=== PATIENT | male | born 1955 | race Caucasian/White ===

== ENCOUNTER → 2017-01-08 13:30 | Outpatient (CLI) | payer BC ==
[2016-09-10 09:47] VITALS: BMI 29.3
[~2017-01-08 13:30] MED LIST: ASPIRIN325 MG PO; DILAUDID2 MG PO; LIPITOR10 MG PO; NORCO 10/325 TA1 TA1 PO; ZESTRIL20 MG PO; ZYLOPRIM300 MG PO
== END | disposition home or self-care (01) ==
LOC: D.CT 13:30
DX: R10.9 Unspecified abdominal pain (principal)

== ENCOUNTER 2018-02-26 05:35 | Day surgery (SDC) | payer BC ==
[2018-02-25 10:47] LABS: HEMATOCRIT 48.8 % (42.0-54.0); HEMOGLOBIN 16.9 g/dL (13.5-17.5); MCH 31.2 pg (26.0-34.0); MCHC 34.6 g/dL (31.0-37.0); MEAN PLATELET VOLUME 10.4 fL (7.4-10.4); RBC 5.42 10x6/uL (4.20-6.10); RDW 14.5 % (11.5-14.5); WBC 8.2 10x3/uL (4.8-10.8)
[~2018-02-26] VITALS: Ht 180.3 cm; Wt 101.6 kg
--- NOTE | ~2018-02-26 | OP ---
PATIENT NAME: NATASHA JACOBSON MEDICAL RECORD: [id number] :51 LOCATION:[facility] ADMISSION DATE: SURGEON: EDIL CHOUDHURY MD DATE OF OPERATION: 02/26/2018 SURGEON: Edil Choudhury MD ANESTHESIA: MAC by Dr. Edil Cisneros. PREOPERATIVE DIAGNOSIS: Elevated PSA 3.3. PROCEDURE: Transrectal ultrasound and prostate biopsy. SPECIMENS: From prostate biopsy. FINDINGS: A 39 gram prostate with no hypoechoic areas. ESTIMATED BLOOD LOSS: None. CLINICAL HISTORY: This is a 62-year-old male, who is taking testosterone supplementation. [facility]. Last year, his PSA was 1.7 and this year, it mandy to 3.3. He has a history of prostate cancer in an uncle. He comes today to have his prostate biopsy to check for the presence of prostate cancer. He is not allergic to any medications. 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 DESCRIPTION OF PROCEDURE: The patient was given IV sedation. He was then placed into dorsal lithotomy position. He has large external hemorrhoids visible. The transrectal ultrasound probe was placed and prostate size measurements were obtained. We obtained prostate size of 39 grams. Sextant biopsies were then obtained with at least 3 cores from each sextant. Once all the specimens were obtained, the procedure was terminated. The patient was brought back to the preoperative holding area. He is flying out to [place] tomorrow. I will see him upon his return to review his pathology results with him. TRANSINT:[id number] Voice Confirmation ID: [id number] DOCUMENT ID: [id number] EDIL CHOUDHURY MD at 0903 CC: [id number] DICTATION DATE: 02/26/18 0851 [employer] [facility] DIRECTOR: 02/26/18 1154 [facility] 02/26/18 [address] [place] [address]
[~2018-02-26 05:35] MED LIST changes: +ASPIRIN EC81 M1 PO
[2018-02-26 06:36] VITALS: BP 136/82; Ht 180.3 cm; Wt 101.6 kg
== END 2018-02-26 10:35 | disposition home or self-care (01) ==
LOC: D.OPS 05:35
PROVIDERS: Anesthesiology
DX: R97.20 Elevated prostate specific antigen [PSA] (principal); Z01.812 Encounter for preprocedural laboratory examination

== ENCOUNTER → 2018-05-12 14:34 | Outpatient (CLI) | payer BC ==
[2018-02-26 06:36] VITALS: BMI 31.3
== END | disposition home or self-care (01) ==
LOC: D.MRI 14:34
DX: M48.062 Spinal stenosis, lumbar region with neurogenic claudication (principal)

== ENCOUNTER → 2018-08-14 17:45 | Outpatient (CLI) | payer BC ==
[2018-02-26 06:36] VITALS: BMI 31.3
[2018-08-14 18:41] LABS: ANION GAP 15.6 mmol/L (8-16); CALCIUM 9.1 mg/dL (8.5-10.1); CARBON DIOXIDE 25.3 mmol/L (21.0-32.0); CREATININE - SERUM 1.3 mg/dL (0.6-1.3); POTASSIUM - SERUM 4.9 mmol/L (3.5-5.1)
== END | disposition home or self-care (01) ==
LOC: D.LABREF 17:45
PROVIDERS: Nurse Practitioner
DX: I10 Essential (primary) hypertension (principal)

== ENCOUNTER → 2018-08-20 11:48 | Outpatient (CLI) | payer BC ==
[2018-02-26 06:36] VITALS: BMI 31.3
== END | disposition home or self-care (01) ==
LOC: D.HCCARDIO 11:48
DX: I25.10 Atherosclerotic heart disease of native coronary artery without angina pectoris (principal); I10 Essential (primary) hypertension

== ENCOUNTER 2018-09-04 06:00 | Outpatient (CLI) | payer BC, MEDICARE ==
[~2018-09-04] VITALS: Ht 180.3 cm; Wt 102.3 kg
--- NOTE | ~2018-09-04 | HEMODYNAMI ---
PATIENT:NATASHA JACOBSON MEDICAL RECORD: [id number] : 51 LOCATION:D[facility] ADMISSION DATE: 09/04/18 Generatedon:09/04/20188:34 Patient name: NATASHA JACOBSON Patient #: [id number] SSN: : 1955 Date of study: 09/04/2018 Page: Of Hemodynamic Procedure Report Patient Data Patient Demographics Procedure consent was obtained First Name: NATASHA Gender: Male Last Name: INDIRA : 1955 [facility] Initial: VALENTINO Age: 63 year(s) Patient #: [id number] Race: Unknown Additional ID: [id number] Contact details [address]: [address] [place] [address] [address]IVE State: [place] City: [place] Zip code: [address] Past Medical History Allergies: No known allergies Admission Admission Data Admission Date: 09/04/2018 Admission Time: 6:00 Admit Source: Other Lab Results Lab Result Date: 09/04/2018 Lab Result Time: 6:30 Biochemistry Name Units Result Min Max BUN mg/dl 16 --(---*)-- 7 18 Creatinine mg/dl 1.4 --(----)*- 0.6 1.3 CBC Name Units Result Min Max Hematocrit % 46.7 --(-*--)-- 42 54 Hemoglobin g/dl 16.4 --(--*-)-- 13.5 17.5 Procedure Procedure Types Cath Procedure Diagnostic Procedure LHC LHC w/Coronaries Sedation Charges Moderate Sedation up to 30 minutes Procedure Description Procedure Date Procedure Date: 09/04/2018 Procedure Start Time: 8:08 Procedure End Time: 8:33 Procedure Staff Name Function Justin Mckeon MD Performing Physician Parveen Galindo RT Monitor Kourtney Sykes RT Scrub Radha Perez RN Nurse Deborah Santos RN Section Chief Procedure Data Cath Procedure Fluoroscopy Diagnostic fluoroscopy Total fluoroscopy Time: 4.8 time: 4.8 min min Diagnostic fluoroscopy Total fluoroscopy dose: 803 dose: 803 mGy mGy Contrast Material Contrast Material Type Amount (ml) Isovue 300 71 Entry Location Entry Primary Successful Side Size Upsize Upsize Entry Closure Musa ccessful Closure Location (Fr) 1 (Fr) 2 (Fr) Remarks Device Remarks Femoral Right 6 Fr Mechanical vein Short Compression Femoral Right 5 Fr Exoseal artery Estimated blood loss: 5 ml Diagnostic catheters Device Type Used For End Catheter Placement DIAGNOSTIC Dallin 110cm Procedure 5Fr catheter ([id number]) DIAGNOSTIC Reading 110cm 5 Procedure Fr catheter ([id number]) MULTIPACK JL 4.0 5Fr Procedure catheter MULTIPACK 3DRC 5Fr Procedure catheter Procedure Complications No complications Procedure Medications Medication Administration Route Dosage 0.9% NaCl I.V. 100 ml/hr Oxygen etCO2 Nasal cannula 2 l/min Lidocaine 2% added to field 20 Heparin Flush Bag added to field 2 bags (1000units/500ml NS) Radial Cocktail added to field 1 syringe (Verapomil 2mg/Nitro 400mcg/Heparin 1500units) Versed I.V. 2 mg Fentanyl I.V. 50 mcg Versed I.V. 1 mg Fentanyl I.V. 25 mcg Versed I.V. 1 mg Fentanyl I.V. 25 mcg Versed I.V. 1 mg Hemodynamics Rest HGB: 16.4 (g/dl) Heart Rate: 68 (bpm) Pressure Samples Time Site Value (mmHg) Purpose Heart Use Rate(bpm) 8:12 LV 78/-6,4 Snapshot 76 8:12 AO 67/45(51) Pullback 73 8:12 LV 81/0,7 Pullback 73 Gradients Valve Time Site 1 Site 2 Mean SEP/DFP Peak To Heart Use (mmHg) (sec/min) Peak Rate (mmHg) (bpm) Aortic 8:12 LV AO 6 16 14 73 81/0,7 67/45(51) Calculations Valve P-P Mean Valve Index Valve Source Name Gradient Area Flow (cm2) Aortic 14 6 14 6 Snapshots Pre Cath Intra NCS Post Cath Vital Signs Time Heart Resp SPO2 etCO2 NIBP (mmHg) Rhythm Pain Sedation Rate (ipm) (%) (mmHg) Status Level (bpm) 7:45:11 70 17 100 36 129/89(105) NSR 0 (11) 10(A) , No pain 7:49:31 60 19 99 35.6 126/82(96) NSR 0 (11) 10(A) , No pain 7:53:45 62 15 97 38.5 113/83(95) NSR 0 (11) 10(A) , No pain 7:57:59 66 14 97 32.6 107/75(84) NSR 0 (11) 10(A) , No pain 8:02:11 68 12 96 23.7 103/68(83) NSR 0 (11) 10(A) , No pain 8:06:23 68 12 96 33.3 99/65(78) NSR 0 (11) 10(A) , No pain 8:10:37 69 12 97 33.4 97/58(78) NSR 0 (11) 10(A) , No pain 8:14:49 72 10 96 32.6 82/51(70) NSR 0 (11) 9(A) , No pain 8:18:57 69 11 97 32.6 84/56(64) NSR 0 (11) 10(A) , No pain 8:23:07 67 11 96 31.9 82/51(65) NSR 0 (11) 9(A) , No pain 8:27:17 72 12 97 32.6 84/49(67) NSR 0 (11) 9(A) , No pain 8:31:27 72 11 97 30.4 87/49(68) NSR 0 (11) 10(A) , No pain Medications Time Medication Route Dose Verified Delivered Reason Notes Ef fectiveness by by 7:44:39 0.9% NaCl I.V. 100 Justin Deborah used for ml/hr Mike Santos substation superintendent 7:44:47 Oxygen etCO2 2 l/min Justin Deborah used for Nasal Mike Santos procedure cannula RN 7:44:53 Lidocaine 2% added 20ml Justin Justin for local to vial Mike Mckeon MD anesthetic field 7:45:00 Heparin Flush added 2 bags Justin Justin used for Bag to Mike Mckeon MD procedure (1000units/500ml field NS) 7:45:08 Radial Cocktail added 1 Justin Justin used for (Verapomil to syringe Mike Mckeon MD procedure 2mg/Nitro field 400mcg/Heparin 1500units) 7:57:53 Versed I.V. 2 mg Justin Deborah for Mike Santos sedation RN 7:57:58 Fentanyl I.V. 50 mcg Justin Deborah for Mike Santos sedation RN 8:03:58 Versed I.V. 1 mg Justin Deborah for Mike Santos sedation RN 8:04:02 Fentanyl I.V. 25 mcg Justin Deborah for Mike Santos sedation RN 8:10:59 Versed I.V. 1 mg Justin Deborah for Mike Santos sedation RN 8:11:04 Fentanyl I.V. 25 mcg Justin Deborah for Mike Santos sedation RN 8:22:18 Versed I.V. 1 mg Justin Deborah for Mike Santos sedation recreation assistant Log Time Note 7:31:41 Informed consent obtained and on chart 7:31:45 Admit Source: Other 7:32:09 Diagnostic Cath status Elective 7:32:11 Radha Perez RN sent for patient. Start room use. 7:32:11 Time tracking: Regular hours (M-F 7:00 - 5:00) 7:32:15 Plan of Care:Hemodynamics will remain stable., Cardiac rhythm will remain stable., Comfort level will be maintained., Respiratory function will remain adequate., Patient/ family verbilizes understanding of procedure., Procedure tolerated without complication., Recovers from procedure without complications.. 7:32:45 H&P Date Dictated: 09/04/2018 New H&P dictated by physician.. 7:32:57 Pre-procedure instructions explained to patient. 7:32:58 Pre-op teaching completed and patient verbalized understanding. 7:32:58 Family in waiting room. 7:37:26 Lab Result : BUN 16 mg/dl 7:37:26 Lab Result : Hemoglobin 16.4 g/dl 7:37:26 Lab Result : Creatinine 1.4 mg/dl 7:37:26 Lab Result : Hematocrit 46.7 % 7:37:29 Lab results completed and on chart. 7:38:07 Patient received from Pre/Post Procedure Room to CCL 1 Alert and oriented. Tansferred to table in Supine position. 7:38:09 Warm blankets applied, and bernabe hugger turned on for patient comfort. 7:38:09 Correct patient and procedure confirmed by team. 7:38:12 ECG and BP/O2 sat monitors applied to patient. 7:38:16 Patient NPO since Midnight. 7:38:22 Patient allergic to No known allergies 7:44:05 Vital chart was started 7:44:28 Is patient on blood thinner?No 7:44:30 Patient diabetic? No. 7:44:32 Previous problem with sedation/anesthesia? No ? 7:44:34 Snore? Yes 7:44:35 Sleep apnea? No 7:44:36 Deviated septum? No 7:44:37 Opens mouth fully? Yes 7:44:37 Sticks out tongue? Yes 7:44:39 0.9% NaCl 100 ml/hr I.V. was administered by Deborah Santos RN; used for procedure; 7:44:41 Airway obstruction? No ? 7:44:43 Dentures? No ? 7:44:46 Modified Sohan's test Ulnar < 7 seconds 7:44:47 Oxygen 2 l/min etCO2 Nasal cannula was administered by Deborah Santos RN; used for procedure; 7:44:49 Patient pain scale 0/10 ?. 7:44:53 Lidocaine 2% 20ml vial added to field was administered by Justin Mckeon MD; for local anesthetic; 7:45:00 Heparin Flush Bag (1000units/500ml NS) 2 bags added to field was administered by Justin Mckeon MD; used for procedure; 7:45:00 IV patent on arrival in left forearm with 0.9% NaCl at [facility]. 7:45:05 Right groin area was prepped with chlora-prep and draped in sterile fashion 7:45:05 Alarms reviewed by R. N. 7:45:06 Alarms reviewed by R. N. 7:45:06 Sharps counted by scrub and verified by R.N. 7:45:08 Radial Cocktail (Verapomil 2mg/Nitro 400mcg/Heparin 1500units) 1 syringe added to field was administered by Justin Mckeon MD; used for procedure; 7:45:09 Use device set Radial Dx or PCI 7:45:10 ACIST Syringe (84636) opened to sterile field. 7:45:11 Bag Decanter (2002) opened to sterile field. 7:45:12 ACIST Hand Control (76301) opened to sterile field. 7:45:12 ACIST Manifold (37705) opened to sterile field. 7:45:13 Tegaderm 4 x 4 (1626W) opened to sterile field. 7:45:20 Medline Cath Pack ([id number]) opened to sterile field. 7:45:20 DIAGNOSTIC WIRE .035 260cm J wire (880897) opened to sterile field. 7:45:21 MBrace Wrist Support ([id number]) opened to sterile field. 7:45:22 SHEATH 6FR Slender (33-5222) opened to sterile field. 7:45:23 NEEDLE Cook 21G 4cm Radial (Y60832) opened to sterile field. 7:54:18 Baseline sample Acquired. 7:54:21 Rhythm: sinus rhythm 7:54:22 Full Disclosure recording started 7:57:12 Physician arrived 7:57:13 --------ALL STOP TIME OUT------ 7:57:13 Final Timeout: patient, procedure, and site verified with staff and physician. All members of the team are in agreement. 7:57:16 Right Radial & Right Groin site verified by team. 7:57:18 Physical assessment completed. ASA score P 2 - A patient with mild systemic disease as per Justin Mckeon MD. 7:57:21 Sedation plan: IV Moderate Sedation Medication:Versed, Fentanyl 7:57:26 Zero performed for pressure channel P1 7:57:53 Versed 2 mg I.V. was administered by Deborah Santos RN; for sedation; 7:57:58 Fentanyl 50 mcg I.V. was administered by Deborah Santos RN; for sedation; 8:01:22 Zero performed for pressure channel P1 8:03:58 Versed 1 mg I.V. was administered by Deborah Santos RN; for sedation; 8:04:02 Fentanyl 25 mcg I.V. was administered by Deborah Santos RN; for sedation; 8:08:20 Procedure started. 8:08:25 Local anesthetic to right radial artery with Lidocaine 2% by Justin Mckeon MD.INITIAL ACCESS ONLY 8:09:00 A 6 Fr Short sheath was inserted into the Right Femoral vein 8:10:12 A DIAGNOSTIC Dallin 110cm 5Fr catheter (542179) was advanced over the wire and used for Procedure. 8:10:59 Versed 1 mg I.V. was administered by Deborah Santos RN; for sedation; 8:11:04 Fentanyl 25 mcg I.V. was administered by Deborah Santos RN; for sedation; 8:12:23 LV gram done using GARCIA 8::26 Injector settings: Ml/sec: 5, Volume: 15, 8:12:27 LV hemodynamics recorded. 8:12:39 EF : 60 % 8:14:03 Catheter exchanged over wire. 8:14:11 A DIAGNOSTIC Reading 110cm 5 Fr catheter (673731) was advanced over the wire and used for Procedure. 8:16:25 Catheter removed. 8:16:42 SHEATH 5FR Chelsea (OHQ570) opened to sterile field. 8:16:45 Use device set Multipack Set 8:16:47 DIAGNOSTIC Multipack 5Fr catheter set ([id number]) opened to sterile field. 8:16:58 Local anesthetic to right femoral artery with Lidocaine 2% by Justin Mckeon MD.ADDITIONAL ACCESS 8:22:12 A 5 Fr sheath was inserted into the Right Femoral artery 8:22:18 Versed 1 mg I.V. was administered by Deborah Santos RN; for sedation; 8:22:22 A MULTIPACK JL 4.0 5Fr catheter was advanced over the wire and used for Procedure. 8:23:14 LCA angiography performed. 8:24:51 Catheter exchanged over wire. 8:25:13 A MULTIPACK 3DRC 5Fr catheter was advanced over the wire and used for Procedure. 8:26:03 RCA angiography performed. 8:28:38 Catheter removed. 8:28:49 Contrast amount:Isovue 300 71ml. 8:29:09 EXOSEAL 5Fr (EX500) opened to sterile field. 8:29:11 TR BAND Standard ([id number]) opened to sterile field. 8:30:01 Sheath removed intact; hemostasis achieved with Exoseal to the Right Femoral artery. 8:30:07 Sheath removed intact; hemostasis achieved with Mechanical Compression to the Right Femoral vein. 8:30:09 Procedure ended.(Physican Out) 8:30:47 Fluoroscopy time 04.80 minutes. 8:30:56 Flurop Dose total: 803 8:30:56 Fluoroscopy dose: 803 mGy 8:31:01 Sharps counted by scrub and verified by R.N. 8:31:07 TR band inflated with 10cc of air. 8:31:08 Insertion/operative site no bleeding no hematoma. 8:31:12 Post-op/insertion site Right Femoral artery dressed using a 4 x 4 and Tegaderm. 8:31:15 Post right femoral artery:stable, soft, clean and dry 8:31:19 Post right radial artery:stable, soft, clean and dry 8:31:21 Post Procedure Pulses reassessed and unchanged 8:31:22 Post-procedure physical assessment completed. ASA score P 2 - A patient with mild systemic disease as per Justin Mckeon MD. 8:31:24 Post procedure rhythm: unchanged. 8:31:27 Estimated blood loss: 5 ml 8:31:28 Post procedure instruction explained to patient.Patient verbalizes understanding. 8:31:29 Patient needs reinforcement of post procedure teaching. 8:32:31 Procedure type changed to Cath procedure, Diagnostic procedure, LHC, LHC w/Coronaries, Sedation Charges, Moderate Sedation up to 30 minutes 8:32:55 Procedure and supply charges have been captured, reviewed, submitted and are correct. 8:32:57 Procedure Complication : No complications 8:32:59 Vital chart was stopped 8:33:00 See physician's report for complete and final results. 8:33:01 Report given to Pre/Post Procedure Room. 8:33:03 Patient transfered to Pre/Post Procedure Room with Stretcher. 8:33:05 Procedure ended. 8:33:05 Full Disclosure recording stopped 8:33:09 End room use (Document Last) Device Usage Item Name Manufacture Quantity Catalog Hospital Part Current Minimal Lot# / Number Charge Number Stock Stock Serial# Code ACIST Acist 1 79873 141264 395999 761872 20 Syringe Medical (88035) Systems Inc Bag Microtek 1 126162 24333 177098 5 Decanter Medical Inc. () ACIST Hand Acist 1 18239 558923 325872 505596 5 Control Medical (63940) Systems Inc ACIST Acist 1 34069 718971 340585 014780 5 Manifold Medical (59073) Systems Inc Tegaderm 4 3M 1 1626W 692346 497546 683003 5 x 4 (1626W) Medline Medline 1 [id number] 014559 72309 826525 5 Cath Pack ([id number]) DIAGNOSTIC [facility] Jaspal 1 703969 138255 878478 872520 30 WIRE .035 260cm J wire (976183) MBrace Advanced 1 140-0250-00 638671 55998 655446 5 Wrist Vascular Support Dynamics ([id number]) SHEATH 6FR Terumo 1 [id number] 541699 024789 480017 5 Slender (80-1060) NEEDLE [facility] 1 P25766 409480 606531 293010 5 21G 4cm Radial (C70523) DIAGNOSTIC Terumo 1 40-5023 476056 959006 711749 5 Dallin 110cm 5Fr catheter (557227) DIAGNOSTIC Terumo 1 40-5013 574640 699643 166151 5 Reading 110cm 5 Fr catheter (634324) SHEATH 5FR Terumo 1 UMG179 533352 753383 225952 5 Chelsea (NRR257) DIAGNOSTIC Cardinal 1 US2885 342108 59366 949010 30 Multipack Health 5Fr catheter set (VL1562) MULTIPACK Cardinal 1 601158 5 JL 4.0 5Fr Health catheter MULTIPACK Cardinal 1 512925 5 3DRC 5Fr Health catheter EXOSEAL 5Fr Cardinal 1 EX500 989630 764010 794378 10 (EX500) Health TR BAND Terumo 1 [id number] 210306 855068 692612 40 Standard (DUY93BUR) Signature Audit [place] Time Signature Unsigned Intra-Procedure 09/04/2018 Parveen Galindo 8:34:12 AM RT(R) Signatures Monitor : Parveen Galindo RT Signature : Date : Time : [facility] [address], [place] [address]
[2018-09-04] MEDS ORDERED: ZYLOPRIM300 MG PO (06:26)
[2018-09-04] MEDS ORDERED: LIPITOR20 MG PO (06:27)
[2018-09-04] MEDS ORDERED: LISINOPRIL10 MG PO (06:27)
[2018-09-04] MEDS ORDERED: NAPROSYN500 MG PO (06:27)
[2018-09-04] MEDS ORDERED: PRINIVIL20 MG PO (06:30)
[2018-09-04] MEDS ORDERED: EDARBI40 MG PO (06:30)
[2018-09-04 06:38] VITALS: BP 130/77; Ht 180.3 cm; Wt 102.3 kg
[2018-09-04 06:48] LABS: BASOPHILS 0.3 % (0-2); EOSINOPHILS 2.8 % (0-7); HEMATOCRIT 46.7 % (42.0-54.0); HEMOGLOBIN 16.4 g/dL (13.5-17.5); IMMATURE GRANULOCYTES 0.9 % (0-5); LYMPHOCYTES 19.9 % (15-50); MCH 32.7 pg (26.0-34.0); MCHC 35.1 g/dL (31.0-37.0); MCV 93.2 fL (80.0-100.0); MEAN PLATELET VOLUME 10.4 fL (7.4-10.4); MONOCYTES 11.1 % (2-11); PLATELET COUNT 169 10x3/uL (130-400); RBC 5.01 10x6/uL (4.20-6.10); RDW 15.8 % (11.5-14.5); WBC 7.7 10x3/uL (4.8-10.8)
[2018-09-04 07:07] LABS: ANION GAP 16.9 mmol/L (8-16); CALCIUM 8.9 mg/dL (8.5-10.1); CARBON DIOXIDE 22.5 mmol/L (21.0-32.0); CREATININE - SERUM 1.4 mg/dL (0.6-1.3); POTASSIUM - SERUM 4.4 mmol/L (3.5-5.1)
--- NOTE | 2018-09-04 08:55 | NUR ---
PT SLEEPING, RESP WTIH EASE ON O2 AT 2LPM VIA NC, HOB IS FLAT. NO BLEEDING AT CATH SITES TO RIGHT WRIST AND RIGHT GROIN, FINGERS AND FEET WARM, PULSES PALPABLE. MULTIPLE FAMILY AT BEDSIDE. CALL LIGHT IN REACH.
--- NOTE | 2018-09-04 09:11 | NUR ---
TR BAND IS CDI TO RIGHT WRIST, FIGNERS WARM AND CAP REFILL IS BRISK. PT IS SLEEPING, AWAKENS TO VERBAL STIMULI, REMAINS VERY DROWSY DENIES ANY C/O. PEDAL PULSES PALPABLE. HOB IS FLAT, RESP WITH EASE ON O2 AT 2LPM VIA NC. MULTIPLE FAMILY AT BEDSIDE. CALL LIGHT IN REACH.
--- NOTE | 2018-09-04 09:34 | NUR ---
2 CC OF AIR WEANED FROM TR BAND WITH NO BLEEDING NOTED. FINGERS WARM AND CAP IS BRISK. 5 FR EXOSEAL DRESSING TO RIGHT GROIN, AREA IS SOFT AND NONTENDER. PEDAL PULSES PALPABLE. HOB IS FLAT. NSR, DENIES ANY C/O CHEST PAIN.
--- NOTE | 2018-09-04 09:45 | NUR ---
3 CC OF AIR WEANED FROM TR BAND WTIH NO BLEEDING NOTED. FINGERS WARM AND CAP REFILL IS BRISK. EXOSEAL DRESSING TO RIGHT GROIN IS CDI, AREA IS SOFT AND NOTENDER. PEDAL PULSES PALPABLE. HOB ELEVATED 30 DEGREES. PT DENIES ANY C/O.
--- NOTE | 2018-09-04 10:04 | NUR ---
PT IS ALERT, CARYL SANDWICH WITH NO C/O NAUSEA. NSR, RATE 70 DENIES ANY C/O CHEST PAIN. 3 CC OF AIR WEANED FROM TR BAND WITH NO BLEEDING NOTED. DRESSING TO RIGHT GROIN IS CDI, PULSES PALPABLE. HOB ELEVATED FULLY. MULTIPLE FAMILY MEMBERS AT BEDSIDE, PT DENIES ANY C/O.
--- NOTE | 2018-09-04 10:11 | NUR ---
DR CHAVEZ IS ROUNDING ON PATIENT WTIH FAMILY AT BEDSIDE.
--- NOTE | 2018-09-04 10:34 | NUR ---
ALL AIR IS RELEASED FROM TR BAND WITH NO BLEEDING NOTED. FINGERS WARM AND CAP REFILL IS BRISK. DRESSING IS CDI TO RIGHT GROIN, AREA IS SOFT AND NONTENDER. PEDAL PULSES PALPABLE. SITTING UP IN BED, VISITING WITH FAMILY IN ROOM.
--- NOTE | 2018-09-04 10:52 | NUR ---
TR BAND HAS BEEN DC'D AND 2X2, TEGADERM PLACED TO SITE. FINGERS WARM AND CAP REFILL IS BRISK. EXOSEAL DRESSING IS CDI, PEDAL PULSES PALPABLE. PT DENIES ANY C/O.
--- NOTE | 2018-09-04 11:07 | NUR ---
DC INSTRUCTIONS REVIEWED WITH PT AND FAMILY WHO VERBALIZE UNDERSTANDING.
--- NOTE | 2018-09-04 11:27 | NUR ---
DR CHAVEZ'S NURSE HAS ROUNDED AGAIN. IV DC'D WITH CATH INTACT AND CA IS DRESSING FOR DC TO HOME. PT DENIES ANY C/O. DRESSING REMAIN CDI, PULSES PALPABLE.
--- NOTE | 2018-09-04 12:43 | NUR ---
1205 PT ALERT AND DENIES ANY C/O. HAS AMBULATED TO THE BATHROOM AND VOIDED QS. PT ESCORTED TO PRIVATE AUTO VIA WC BY NURSE WITH SIGNIFICANT OTHER DRIVING HIM HOME. PT HAS ALL DC INSTRUCTIONS AND PERSONAL BELONGINGS AT TIME OF DC TO HOME.
== END 2018-09-04 12:05 | disposition home or self-care (01) ==
LOC: D.CATH 06:00
PROVIDERS: Internal Medicine Cardiovascular Disease
DX: I25.110 Atherosclerotic heart disease of native coronary artery with unstable angina pectoris (principal); T82.855A Stenosis of coronary artery stent, initial encounter; I10 Essential (primary) hypertension; M19.90 Unspecified osteoarthritis, unspecified site; G62.9 Polyneuropathy, unspecified; Z79.1 Long term (current) use of non-steroidal anti-inflammatories (NSAID); Z79.82 Long term (current) use of aspirin; Z79.899 Other long term (current) drug therapy; Z82.49 Family history of ischemic heart disease and other diseases of the circulatory system; Z01.812 Encounter for preprocedural laboratory examination

== ENCOUNTER 2018-09-15 09:00 | Inpatient (IN) | payer MEDICARE, BC ==
[~2018-09-15] VITALS: Ht 180.3 cm; Wt 107.1 kg
[~2018-09-15 09:00] MED LIST changes: +EDARBI40 MG PO; +LIPITOR20 MG PO; +LISINOPRIL10 MG PO; +NAPROSYN500 MG PO; +PRINIVIL20 MG PO
[2018-09-15 11:22] LABS: BASOPHILS 0.6 % (0-2); EOSINOPHILS 3.1 % (0-7); IMMATURE GRANULOCYTES 0.8 % (0-5); LYMPHOCYTES 18.9 % (15-50); MCHC 34.6 g/dL (31.0-37.0); MCV 95.4 fL (80.0-100.0); MEAN PLATELET VOLUME 10.8 fL (7.4-10.4); MONOCYTES 14.6 % (2-11); PLATELET COUNT 181 10x3/uL (130-400); RBC 5.45 10x6/uL (4.20-6.10); RDW 15.4 % (11.5-14.5); WBC 8.7 10x3/uL (4.8-10.8)
[2018-09-15 11:26] LABS: APPEARANCE CLEAR (CLEAR); BILIRUBIN NEGATIVE (NEGATIVE); COLOR YELLOW (YELLOW); GLUCOSE NEGATIVE (NEGATIVE); KETONE NEGATIVE (NEGATIVE); NITRITE NEGATIVE (NEGATIVE); PROTEIN NEGATIVE (NEGATIVE); UROBILINOGEN NORMAL (NORMAL)
[2018-09-15 11:29] LABS: APTT 30.4 SECONDS (22.8-39.4); INR 1.02 (0.85-1.17); PROTIME 12.9 SECONDS (11.6-15.0)
[2018-09-15 11:40] LABS: ALBUMIN 4.7 g/dL (3.4-5.0); ANION GAP 12.9 mmol/L (8-16); BILIRUBIN - TOTAL 0.73 mg/dL (0.2-1.3); CALCIUM 9.9 mg/dL (8.5-10.1); CARBON DIOXIDE 29.3 mmol/L (21.0-32.0); CREATININE - SERUM 1.6 mg/dL (0.6-1.3); POTASSIUM - SERUM 5.2 mmol/L (3.5-5.1); PROTEIN - SERUM 7.9 g/dL (6.4-8.2); T4 THYROXIN - FREE 0.81 ng/dL (0.76-1.46); THYROID STIMULATING HORMONE 3.09 uIU/mL (0.36-3.74); URIC ACID 5.7 mg/dL (2.6-7.2)
[2018-09-15] MEDS ORDERED: EDARBI40 MG PO (12:10)
[2018-09-15] MEDS ORDERED: XANAX XR 1 MG TA1 MG PO (12:12)
[2018-09-15] MEDS ORDERED: NITROQUICK0.4 MG SL (12:13)
[2018-09-17] VITALS (26 sets, daily range): BP systolic 88–131; BP diastolic 57–85; BMI 33.2; BMI 32.9
--- NOTE | 2018-09-17 17:35 | NUR ---
PT ARRIVED FROM THE OR TO THE UNIT. PT SEDATED AND VENTILATED. PT HOOKED TO ICU MONITORS. 9ETT NOTED 24 AT THE LIP. LEFT IJ NOTED SEE IV FLUIDS IN THE FLOW SHEET. MIDLINE CHEST INCISION NOTED, DRESSING C/D/I. SUBSTERNAL DRESSING C/D/I. CT X2 CONNECTED TO 2O SUCTION WITH NO AIR LEAK. BLOODY DRAINAGE NOTED. LEFT BILL DRESSING C/D/I. BULB COMPRESSED. BLOODY DRAINAGED NOTED. TPM WIRES NOTED UNDER THE DRESSING. RIGHT RADIAL JAMES NOTED. WRIST PROTECTOR ON. CAP REFILL <3 SECONDS. PIV NOTED TO LEFT WRIST. IT WAS REMOVED. RIGHT LEG HARVEST SITE NOTED. KOBAN DRESSING FROM ANKLE TO GROIN NOTED. 2 GABRIELLA DRAINS NOTED TO RIGHT LEG. COMPRESSED WITH BLOODY DRAINAG. BILATERAL DORSALSIS PEDIS PULSES PALPABLE. NSR ON THE MONITOR ALL VSS.
--- NOTE | 2018-09-17 17:50 | NUR ---
DR CHAVEZ IN THE PTS ROOM. PT BECOMING HYPOTENSIVE. ORDERS TO GIVE A 500ML BOLUS.
--- NOTE | 2018-09-17 19:02 | NUR ---
REPORT RECEIVED, SHIFT ASSESSMENT COMPLETED PER FLOW SHEET. SEDATED ON VENT VIA ETT. OPENS EYES TO SPEECH AND FOLLOWING COMMANDS. RT IJ CVL PATENT, SEE FLOW SHEET FOR IV DRIPS, DRESSING C/D/I. RT RADIAL A-LINE PATENT, ZEROED, WITH GOOD WAVERFORM. MIDSTERNAL DRESSING C/D/I. SUBSTERNAL DRESSING C/D/I, X2 CT TO 20 CM SUCTION NO AIR LEAK, X1 CT TO BILL DRAIN COMPRESSED, TPM WIRES SECURED NOT CONNECTED TO TPM. RT LEG HARVEST SITE, COBAN DRESSING C/D/I, X2 GABRIELLA DRAINS COMPRESSED. PARK CATHETER TO GRAVITY SECURED, DRAINING CLEAR YELLOW UOP. SEE FLOW SHEET FOR COMPLETE ASSESSMENT. WILL CONTINUE TO MONITOR.
--- NOTE | 2018-09-17 19:09 | NUR ---
PT FOLLOWING COMMANDS BUT STILL VERY DROWSY. WILL CONT TO WEEN. VSS AT THIS TIME. WILL CONT POC.
--- NOTE | 2018-09-17 20:05 | NUR ---
FIANCE AT BEDSIDE, UPDATE GIVEN, QUESTIONS ANSWERED. PATIENT CALM AND COOPERATIVE. NO COMPLAINTS. WILL CONTINUE TO MONITOR.
--- NOTE | 2018-09-17 20:31 | NUR ---
FAMILY MEMBERS AT BEDSIDE, UDPATE GIVEN, QUESTIONS ANSWERED.
--- NOTE | 2018-09-17 20:43 | NUR ---
CALLED AND SPOKE TO DR. CHAVEZ, INFORMED HIM OF ST ELEVATIONS NOTED ON TELEMETRY AND EKG, UPDATE GIVEN ON PATIENT'S PROGRESS POST-OP, NO NEW ORDERS RECEIVED.
--- NOTE | 2018-09-17 22:26 | NUR ---
PATIENT FOLLOWING COMMANDS, AWAKE AND ALERT, EXTUBATED PER RT TO 4 L NC, ORAL CARE PROVIDED. DENIES ANY PAIN. WILL CONTINUE TO MONITOR.
--- NOTE | 2018-09-17 23:01 | NUR ---
REASSESSMENT COMPLETED PER FLOW SHEET, SEE FOR DETAILS. PATIENT CALM AND COOPERATIVE. DENIES PAIN. 4 L O2 VIA NC. O2 SAT 99%. VSS. TOLERATING ICE CHIPS. DENIES NEEDS. SEE FLOW SHEET FOR COMPLETE ASSESSMENT. WILL CONTINUE TO MONITOR.
[2018-09-18] VITALS (31 sets, daily range): BP systolic 99–135; BP diastolic 58–91; Ht 180.3 cm; Wt 107.1 kg
--- NOTE | 2018-09-18 00:36 | NUR ---
PATIENT C/O OF INCISIONAL PAIN, PATIENT STATES HE HAS NO ALLERGIES, PRN PERCOCET GIVEN, SEE EMAR FOR DETAILS. WILL CONTINUE TO MONITOR.
--- NOTE | 2018-09-18 01:24 | NUR ---
BP STABLE, NEOSYNEPHRINE TURNED OFF AT THIS TIME. WILL CONTINUE TO MONITOR.
--- NOTE | 2018-09-18 01:26 | NUR ---
DENIES PAIN, WATER WITH ICE PROVIDED, TOLERATING WELL. WILL CONTINUE TO MONITOR.
--- NOTE | 2018-09-18 03:01 | NUR ---
REASSESSMENT COMPLETED PER FLOW SHEET, SEE FOR DETAILS. NO ACUTE DISTRESS NOTED. WATER WITH ICE PROVIDED, TOLERATING WELL. DENIES OTHER NEEDS. WILL CONTINUE TO MONITOR.
--- NOTE | 2018-09-18 04:02 | NUR ---
XR PERSONNEL AT BEDSIDE FOR AM XR
--- NOTE | 2018-09-18 04:18 | NUR ---
FIANCE AT BEDSIDE, QUESTIONS ANSWERED, UPDATE GIVEN. WATER WITH ICE PROVIDED TO PATIENT. DENIES OTHER NEEDS. WILL CONTINUE TO MONITOR.
--- NOTE | 2018-09-18 05:00 | NUR ---
PATIENT DANGLED TO SIDE OF BED, COUGHING ENCOURAGED AND USE OF IS. PATIENT PULLING 1000 X10. COUGH STRONG, NO SPUTUM AT THIS TIME. SUBSTERNAL DRESSING CHANGED, X3 CT SITES NOTED, SUTURES INTACT, PACEMAKER WIRES NOTED, SUTURES INTACT. TOLERATED ALL WELL. DENIES NEEDS. WILL CONTINUE TO MONITOR.
[2018-09-18 06:22] LABS: HEMATOCRIT 41.9 % (42.0-54.0); HEMOGLOBIN 14.4 g/dL (13.5-17.5); MCH 32.6 pg (26.0-34.0); MCHC 34.4 g/dL (31.0-37.0); MCV 94.8 fL (80.0-100.0); MEAN PLATELET VOLUME 10.4 fL (7.4-10.4); RBC 4.42 10x6/uL (4.20-6.10); RDW 15.7 % (11.5-14.5); WBC 16.2 10x3/uL (4.8-10.8)
[2018-09-18 06:39] LABS: ALBUMIN 3.1 g/dL (3.4-5.0); ANION GAP 15.6 mmol/L (8-16); BILIRUBIN - TOTAL 0.8 mg/dL (0.2-1.3); CALCIUM 7.2 mg/dL (8.5-10.1); CREATININE - SERUM 1.3 mg/dL (0.6-1.3); POTASSIUM - SERUM 4.6 mmol/L (3.5-5.1); PROTEIN - SERUM 5.3 g/dL (6.4-8.2)
--- NOTE | 2018-09-18 08:45 | NUR ---
[facility] [employer] [facility]ARK DCD PER PROTOCOL TIP INTACT, ASSISTED UP TO CHAIR
--- NOTE | 2018-09-18 09:03 | NUR ---
0700 PT RECIEVED ALERT AND OREINTED O2 4L NC R IJ CVL DRESSING CDI WITH PLASMALYTE 10ML;HR AND ZINACEF 11.4ML/HR, MIDSTERNAL INCISION CDI, SUBSTERNAL A&P CT TO SUCTION BLOODY DRAINAGE, SUBSTERNAL BILL DRAIN COMPRESSED WITH BLOODY DRAINAGE, TPM WIRES COILED UNDER DRESSING, R RADIAL ART ZEROED, DRESSING CDI, GOOD WAVEFORM, PARK DRAINING CLEAR YELLOW URINE, R LEG DRESSING CDI COBAN GROIN TO ANKLE WITH TWO GABRIELLA WITH BLOODY DRAINAGE COMPRESSED, TOLERATING CLEAR LIQUIDS, VSS, WILL CONTINUE TO MONITOR 0900 ASSISTED UP TO CHAIR, TOLERATED WELL, VSS
--- NOTE | 2018-09-18 15:15 | NUR ---
DR CHAVEZ IN UNIT UPDATED ON CT OUPUT, ORDERS FOR 12.5 METOPROLOL NOW, NOT SCHEDULED AT THIS TIME.
--- NOTE | 2018-09-18 16:55 | NUR ---
1100 ATE 75% LUNCH WITHOUT DIFFICULTY 1300 REPOSITIONED IN CHAIR, FAMILY HERE FOR VISITATION 1600 URINATED 400ML DARK URINE 1630JP DRAINS REMOVED FROM RLE, COMPLAINTS OF NAUSEA, ZOFRAN PER EMAR
--- NOTE | 2018-09-18 17:15 | OP ---
PATIENT NAME: NATASHA JACOBSON MEDICAL RECORD: [id number] :51 LOCATION:D.CVI DTatiCV04 ADMISSION DATE:09/17/18 SURGEON: MATT CHAVEZ MD DATE OF OPERATION: 09/17/2018 SURGEON: Matt Chavez MD ASSISTANTS: Valdemar Benites MD and Casper Laurent OPERATIONS PERFORMED: Coronary artery bypass graft times 4 (left internal mammary to LAD, reverse saphenous vein graft from aorta to diagonal, aorta to obtuse marginal, aorta to posterior descending artery). PREOPERATIVE DIAGNOSES: Coronary artery disease. POSTOPERATIVE DIAGNOSIS: Coronary artery disease. ANESTHESIA: General endotracheal anesthesia. ESTIMATED BLOOD LOSS: Total cardiopulmonary bypass with Cell Saver retransfusion. No bank blood. COMPLICATIONS: None. SPECIMENS: None. CONDITION: Stable. DISPOSITION: CV ICU. OPERATIVE FINDINGS: 1. Transesophageal echocardiography revealed good contractility about 50% with trace mitral regurgitation, and after cardiopulmonary bypass, ejection fraction improved to 55% to 60% with again trace mitral regurgitation. 2. Moderately large 5-6 mm vein throughout the entire right lower extremity and superficial, necessitating bridging harvest instead of endoscopic vein harvest due to the superficial location of the vein. The smallest portion from the lower leg was used for the diagonal bypass. 3. Good quality left internal mammary artery. The LAD was a 2.5 mm vessel. 4. The patient had a relatively large fatty heart. 5. The first diagonal is a 1.5 mm intraepicardial vessel. 6. Obtuse marginal is a 2.0 mm vessel. 7. Posterior descending artery was severely diseased throughout and distal to the site of anastomosis was calcified out to the apex, anastomosis in the most distal site available. OPERATIVE INDICATIONS: Coronary artery disease, unstable angina. DESCRIPTION OF PROCEDURE: The patient was brought to the operating suite. General anesthesia was obtained, the patient was prepped and draped. Bridging incisions were used in the right lower extremity to remove the greater saphenous vein. Side branches were divided with clips, vessel ligated proximally and distally removed. Side branches were oversewn or tied. The leg was later closed in 2 layers and 2 drains were placed. Skin clips were used. OPERATIVE REPORT [id number] NATASHA JACOBSON Median sternotomy incision was made. Subcutaneous tissue was divided with electrocautery. The sternum was divided with a saw. Left hemisternum was elevated. Left pleural cavity was entered. Left internal mammary vein was taken as a pedicle graft. Sternal retractors were placed. Pericardium was opened. Heparin was given. The internal mammary was made ready for use, aorta was cannulated. Dual-stage venous cannula was inserted, activated, clotting times were appropriately elevated. The patient was placed on to cardiopulmonary bypass. Sites for distal anastomosis were selected. Antegrade cardioplegia needle was inserted. The patient was cooled. Crossclamp was placed. Cardioplegia given antegrade, this was repeated at 15-minute intervals including down the completed vein grafts. Distal anastomoses performed in standard technique. Proximal anastomosis with single cross-clamp technique. Aortic root de-aired, proximal anastomosis was shot down. The vein grafts de-aired and flow restored. Proximal and distal anastomotic sites inspected for bleeding. A single 6-0 was placed at the proximal sites. The patient resumed a spontaneous rhythm, fully rewarmed, weaned from cardiopulmonary bypass and was stable. The patient was decannulated. Protamine was given. Aortic cannulation site was oversewn with a pledgeted Prolene suture. Thorough irrigation was undertaken. Grafts lay appropriately. Drains were placed in the mediastinum and left pleural cavity. Single ventricular pacing wires were placed. The pericardial fat was loosely reapproximated in the midline. Hemostasis was assured. The left chest was evacuated and irrigated. Sternum was closed with wires. Fascia was closed. Subcutaneous tissue was closed. Skin was closed. Dermabond was placed. The needle and sponge counts were reported to be correct. The patient was taken to the ICU in stable condition. TRANSINT:[id number] Voice Confirmation ID: [id number] DOCUMENT ID: [id number] MATT CHAVEZ MD at 1713 CC: NATASHA GRIFFIN M.D. [id number] DICTATION DATE: 09/17/181719 FIRST AID INSTRUCTOR: 09/17/182022 ADM IN [place] 117880 [place] [id number]
--- NOTE | 2018-09-18 18:04 | NUR ---
PT ASSISTED BACK TO BED
--- NOTE | 2018-09-18 19:20 | NUR ---
REPORT RECEIVED, SHIFT ASSESSMENT COMPLETED PER FLOW SHEET. PATIENT AAOX4. FOLLOWS COMMANDS. MOVES EXTREMITIES. RT IJ CVL PATENT, DRESSING C/D/I. MIDSTERNAL DRESSING C/D/I. SUBSTERNAL DRESSING C/D/I, X2 CT TO 20 CM SUCTION, NO AIR LEAK, X1 CT TO BILL DRAIN COMPRESSED WITH BLOODY OUTPUT. COUGH, DEEP BREATHING, AND USE OF IS ENCOURAGED, PATIENT O2 SAT 89-91% DESPITE INTERVENTIONS, PLACED ON 2 L NC, O2 SAT INCREASED TO 95%. DENIES NEEDS. SEE FLOW SHEET FOR COMPLETE ASSESSMENT. WILL CONTINUE TO MONITOR. CALL LIGHT WITHIN REACH.
--- NOTE | 2018-09-18 19:39 | NUR ---
ORAL RINSE WITH PERIDEX PROVIDED
--- NOTE | 2018-09-18 20:10 | NUR ---
FAMILY AT BEDSIDE, QUESTIONS ANSWERED, UPDATE GIVEN. PATIENT REPOSITIONED IN BED PER HIS REQUEST. NO OTHER NEEDS. CALL LIGHT WITHIN REACH.
--- NOTE | 2018-09-18 21:00 | NUR ---
FAMILY AT BEDSIDE. SCHEDULED MEDS GIVEN. WATER WITH ICE PROVIDED. C/O INCISIONAL PAIN, PRN PERCOCET GIVEN, SEE EMAR FOR DETAILS. DENIES OTHER NEEDS. WILL CONTINUE TO MONITOR.
--- NOTE | 2018-09-18 23:01 | NUR ---
REASSESSMENT COMPLETED PER FLOW SHEET, SEE FOR DETAILS. VSS. DENIES NEEDS. COUGH/DEEP BREATHING AND USE OF IS ENCOURAGED. CALL LIGHT WITHIN REACH. WILL CONTINUE TO MONITOR.
--- NOTE | 2018-09-18 23:36 | NUR ---
PATIENT C/O INCISIONAL PAIN, PRN PERCOCET GIVEN, DENIES OTHER NEEDS. CALL LIGHT WITHIN REACH. WILL CONTINUE TO MONITOR.
[2018-09-19] VITALS (24 sets, daily range): BP systolic 98–132; BP diastolic 63–81
--- NOTE | 2018-09-19 01:25 | NUR ---
COUGH/DEEP BREATHING AND USE OF IS ENCOURAGED, COUGH WEAK AND NON-PRODUCTIVE, PULLING 1000 X10 ON IS. DENIES NEEDS. CALL LIGHT WITHIN REACH.
--- NOTE | 2018-09-19 03:01 | NUR ---
REASSESSMENT COMPLETED PER FLOW SHEET, SEE FOR DETAILS. DENIES NEEDS. WILL CONTINUE TO MONITOR. CALL LIGHT WITHIN REACH.
--- NOTE | 2018-09-19 04:08 | NUR ---
IS ENCOURAGED, PATIENT PULLING 1000 X10, COUGH WEAK AND NON-PRODUCTIVE. DENIES NEEDS. CALL LIGHT WITHIN REACH.
--- NOTE | 2018-09-19 04:17 | NUR ---
FIANCE AT BEDSIDE, QUESTIONS ANSWERED, UPDATE GIVEN. NO NEEDS AT THIS TIME.
--- NOTE | 2018-09-19 04:24 | NUR ---
FIANCE AT BEDSIDE, PATIENT STATES HE "WOULD LIKE TO RINSE HIS MOUTH" ORAL CARE KIT PROVIDED, DENIES OTHER NEEDS.
--- NOTE | 2018-09-19 04:39 | NUR ---
XR PERSONNEL AT BEDSIDE FOR AM XR.
--- NOTE | 2018-09-19 06:00 | NUR ---
SUBSTERNAL DRESSING CHANGED, X3 CT SITES NOTED SUTURES INTACT, TPM WIRES NOTED AND SUTURES INTACT. ASSISSTED PATIENT OOB TO CHAIR, TOLERATED WELL. CALL LIGHT WITHIN REACH. DENIES NEEDS. WILL CONTINUE TO MONITOR.
[2018-09-19 06:20] LABS: HEMATOCRIT 37.2 % (42.0-54.0); HEMOGLOBIN 12.5 g/dL (13.5-17.5); MCH 31.9 pg (26.0-34.0); MCHC 33.6 g/dL (31.0-37.0); MCV 94.9 fL (80.0-100.0); MEAN PLATELET VOLUME 11.3 fL (7.4-10.4); RBC 3.92 10x6/uL (4.20-6.10); RDW 15.5 % (11.5-14.5)
[2018-09-19 06:49] LABS: ALBUMIN 2.8 g/dL (3.4-5.0); ANION GAP 12.8 mmol/L (8-16); BILIRUBIN - TOTAL 0.96 mg/dL (0.2-1.3); CALCIUM 7.6 mg/dL (8.5-10.1); CARBON DIOXIDE 26.8 mmol/L (21.0-32.0); CREATININE - SERUM 1.2 mg/dL (0.6-1.3); POTASSIUM - SERUM 4.6 mmol/L (3.5-5.1); PROTEIN - SERUM 5.4 g/dL (6.4-8.2)
--- NOTE | 2018-09-19 09:28 | NUR ---
0700 RECIEVED UP IN CHAIR ALERT AN DORIENTED O2 2L NC, MIDSTERNAL AND SUBSTERNAL DRESSINGS CDI, SUBSTERNAL CT X2 AND BILL DRAIN, TPM WIRE UNDER DRESSING, CONTINENT, R LEG DRESSINGS CDI, SEE SHIFT ASSESSMENT FOR DETAILS [address] CHAVEZ 0900 AM MEDS GIVEN AND BREAKFAST TOLERATED WELL
--- NOTE | 2018-09-19 15:34 | NUR ---
1000 PT AMBULATED 250 FT WITH THERAPY 1100 ATE 50% LUNCH 1400 AMBULATED 500FT WITH THERAPY USES IS AT LEAST EVERY 30 [id number] AND PULLS 750-1000, USES INDEPENDENTLY, VOIDS IN URINAL, ABLE TO REPOSITION SELF IN CHAIR
--- NOTE | 2018-09-19 17:02 | NUR ---
PT ATTEMPTED TO SELF TRANSFER TO BED WITH FIANCES ASSISTANCE, NOTED TO BE STANDING AND I ASSISTED TO BED, PT THEN COMPLAINING OF INCISIONAL CHEST PAIN, PRN PERCOCET GIVEN PER EMAR
--- NOTE | 2018-09-19 19:00 | NUR ---
REPORT RECEIVED AND ASSESSMENT COMPLETED. SEE FLOWSHEET FOR FULL DETAILS. VSS. WILL MONITOR THROUGHOUT SHIFT.
--- NOTE | 2018-09-19 20:15 | NUR ---
FAMILY AT BEDSIDE NO CHANGES IN STATUS AT THIS TIME. VSS. WILL CONTINUE TO MONITOR
[2018-09-20] VITALS (24 sets, daily range): BP systolic 030–140; BP diastolic 60–92
--- NOTE | 2018-09-20 01:30 | NUR ---
NO CHANGED IN PT STATUS AT THIS TIME. VSS. WILL MONITOR
[2018-09-20 06:24] LABS: HEMATOCRIT 35.9 % (42.0-54.0); HEMOGLOBIN 12.2 g/dL (13.5-17.5); MCH 32.4 pg (26.0-34.0); MCV 95.5 fL (80.0-100.0); RBC 3.76 10x6/uL (4.20-6.10); RDW 15.2 % (11.5-14.5); WBC 13.4 10x3/uL (4.8-10.8)
[2018-09-20 06:40] LABS: ALBUMIN 2.7 g/dL (3.4-5.0); ANION GAP 11.7 mmol/L (8-16); BILIRUBIN - TOTAL 0.85 mg/dL (0.2-1.3); CARBON DIOXIDE 27.8 mmol/L (21.0-32.0); CREATININE - SERUM 1.3 mg/dL (0.6-1.3); POTASSIUM - SERUM 4.5 mmol/L (3.5-5.1); PROTEIN - SERUM 5.9 g/dL (6.4-8.2)
--- NOTE | 2018-09-20 07:15 | NUR ---
AWAKE AND ALERT UP IN CHAIR AT BEDSIDE. WET COUGH. SPLINTING WITH HEART PILLOW. IS UP TO 750 ML-INSTRUCTED TO USE DURING COMERICALS ON TV. VERBALIZED UNDERSTANDING. PULSE OX 88-91% PLACE ON 1 LITER NC. VOIDED IN URINAL 125 ML CLEAR YELLOW URINE. DRESSING CHEST AND RIGHT LEG DRY AND INTACT. CHEST BILL DRAINED SERSANG FLUID. 35ML REMOVED FROM BULB. BULB COMPRESSED. STATES HE HURTS CONSTANTLY FROM BILL DRAIN.
--- NOTE | 2018-09-20 07:15 | NUR ---
AWAKE AND ALERT UP IN CHAIR AT BEDSIDE. NO DISTRESS. STATES PAIN IS A 5 DENIES NEED FOR PAIN PILL. CHEST AND RIGHT LEG DRESSING DRY AND INTACT. BILL DRAIN BULB COMPRESSED SMALL AMOUNT DRAINAGE SERSANG.MONITOR SR-ST.AMBULATED TO THE BATHROOM TO VOID. MINIMAL ASSISTANCES REQUIRES WITH LINES
--- NOTE | 2018-09-20 07:45 | NUR ---
ORAL CARE DONE WITH PERIDEX
--- NOTE | 2018-09-20 07:57 | NUR ---
BREAKFAST SERVED ATE
--- NOTE | 2018-09-20 09:32 | NUR ---
AMBULATED IN RIZO WITH PHYSICAL THERAPY TOLERATED WELL. HEART UP TO 119 SINUS TACH. HEART NOW 108 SINUS TACH. NO DISTRESS. DENIES ANY SHORTNESS OF BREATH
--- NOTE | 2018-09-20 10:02 | NUR ---
FAMILY AT BEDSIDE UPDATE GIVEN
--- NOTE | 2018-09-20 11:00 | NUR ---
AMUBLATED IN RIZO WITH FAMILY ON PORTABLE MONITOR. DID BECOME SHORT OF BREATH WITH AMBULATION. PULSE OX 96%.
--- NOTE | 2018-09-20 11:48 | NUR ---
LUNCH TRAY SERVED. FAMILY AT BEDSIDE. NO DISTRESS
--- NOTE | 2018-09-20 13:46 | NUR ---
DR. GARZA HERE ORDERS NOTED. RIJ CORDIS REMOVED PRESSURE HELD NO BLEEDING BRUISING OR HEMATOMA. STERILE DRESSING APPLIED. IV STARTED LEFT FOREARM WITH 20 GAUGE X 1 STICK PATIENT TOLERATED WELL. IV FLUSHES WITHOUT DIFFICULTY GOOD BLOOD RETURN. SALINE LOCK IV.
--- NOTE | 2018-09-20 15:00 | NUR ---
RETURNED TO BED PER FAMILY AMBULATING WITH MINIMAL ASSISTANCES, UNDERSTAND TO CALL FOR NURSE DUE TO LINES. BILL DRAIN WITH MINIMAL DRAINAGE. PASSING ALOT OF GAS AND STOOL. VOIDING IN BATHROOM. DOES GET SHORT OF BREATH WITH AMBULATING TO BATHROOM AND BACK.
--- NOTE | 2018-09-20 15:28 | OP ---
PATIENT NAME: NATASHA JACOBSON MEDICAL RECORD: [id number] :51 LOCATION:D.FERNIEI D.CV04 ADMISSION DATE:09/17/18 SURGEON: MIGUEL GARZA MD DATE OF OPERATION: 09/17/2018 Environmental Field Services Technician Note CUSTOM BOOKBINDER: Miguel Garza MD PRIMARY SURGEON: Matt King MD OPERATION PERFORMED: Coronary artery bypass. ANESTHESIA: General endotracheal, Dr. Skaggs. DESCRIPTION OF PROCEDURE: After informed consent, adequate preoperative medication, evaluation, the patient was brought to the operating room, placed on the table in supine position. The patient was prepped and draped in a sterile field after appropriate monitoring devices. A timeout was taken, the patient identified as admissions assistant harvested the vein and prepared the vein for grafting. The vein was taken through small transverse incisions with a bridging technique. The valve was cannulated and irrigated with heparinized saline solution. The vein was then excised and the tributaries tied with 4-0 silk suture. The vein was of excellent quality for grafting. I assisted in closure of the leg wounds and the case was continued by Dr. King. TRANSINT:[id number] Voice Confirmation ID: [id number] DOCUMENT ID: [id number] MIGUEL GARZA MD at 1528 CC: [id number] DICTATION DATE: 09/17/18 1511 BRAND MARKETING INTERN: 09/17/182005 ADM IN [facility] [address] [place] [address]
--- NOTE | 2018-09-20 16:25 | NUR ---
UP IN CHAIR AT BEDSIDE. AMBULATED TO BATHROOM. DID GET SHORT OF BREATH WITH AMBULATION. PULSE OX IN LOW 90 TO 93%. MINIMAL DRAINAGE FROM BILL. DRESSING RIGHT UPPER LEG REPLACE DUE TO RED DRAINAGE. LINSEY INTACT. NO REDNESS OR DRAINAGE DURING DRESSING CHANGE.FAMILY AT BEDSIDE.
--- NOTE | 2018-09-20 17:10 | NUR ---
DINNER TRAY SERVED. VISITORS IN ROOM
--- NOTE | 2018-09-20 18:12 | NUR ---
AMBULATED TO BATHROOM. SHORTNESS OF BREATH WITH AMBULATION. FAMILY AT BEDSIDE. STILL UP IN CHAIR.
--- NOTE | 2018-09-20 19:00 | NUR ---
REPORT RECEIVED AND ASSESSMENT COMPLETED. SEE FLOWSHEET FOR FULL DETAILS. VSS. WILL MONITOR THROUGHOUT SHIFT
--- NOTE | 2018-09-20 20:39 | NUR ---
FAMILY AT BEDSIDE.
[2018-09-21] VITALS (24 sets, daily range): BP systolic 106–144; BP diastolic 58–92
[2018-09-21 05:38] LABS: HEMATOCRIT 35.2 % (42.0-54.0); MCHC 34.1 g/dL (31.0-37.0); MCV 93.9 fL (80.0-100.0); MEAN PLATELET VOLUME 10.3 fL (7.4-10.4); RBC 3.75 10x6/uL (4.20-6.10); RDW 14.9 % (11.5-14.5); WBC 7.8 10x3/uL (4.8-10.8)
[2018-09-21 05:56] LABS: ALBUMIN 2.7 g/dL (3.4-5.0); ANION GAP 12.9 mmol/L (8-16); BILIRUBIN - TOTAL 0.69 mg/dL (0.2-1.3); CALCIUM 8.2 mg/dL (8.5-10.1); CARBON DIOXIDE 27.2 mmol/L (21.0-32.0); CREATININE - SERUM 1.2 mg/dL (0.6-1.3); POTASSIUM - SERUM 4.1 mmol/L (3.5-5.1); PROTEIN - SERUM 6.1 g/dL (6.4-8.2)
--- NOTE | 2018-09-21 07:10 | NUR ---
IN BED. UP TO BATHROOM. ABULATING WELL INDEPENDENTLY FALL PRECAUTIONS REVIEWED. TO WATCH LINES AND MAKE SURE SOMEONE IS IN THE ROOM FOR SAFETY. DRESSINGS CHEST AND RIGHT LEG DRY AND INTACT. GIRLFRIEND IN THE ROOM
--- NOTE | 2018-09-21 08:00 | NUR ---
BREAKFAST SERVED ATE FAIR.
--- NOTE | 2018-09-21 09:18 | NUR ---
AMBULATED IN RIZO WITH FAMILY. NO SHORTNESS OF BREATH NOTED. TOLERATED FAIR. HEART UP TO 120 SINUS TACH. DOWN TO 109 AFTER RESTING.
--- NOTE | 2018-09-21 11:00 | NUR ---
DAUGHTER BROUGHT PATIENT LUNCH GOOD APPETITE. NAPPING AT INTERVALS. FAMILY HERE UPDATES GIVEN. NO DISTRESS. NO SHORTNESS OF BREATH WHEN AMBULATING TO BATHROOM TODAY. PASSING GAS AND HAVING BOWEL MOVEMENTS. DRESSING CHEST AND LEG DRY AND INTACT. GABRIELLA DRAIN WITH MINIMAL DRAINAGE SERSANG. MONITOR SR ST. GOOD COUGH. INCENTIVE SPIROMETRY TO 1750ML.
--- NOTE | 2018-09-21 13:00 | NUR ---
NAPPING AT INTERVALS ENCOURAGE TO USE INCENTIVE SPIROMETRY. NO DISTRESS
--- NOTE | 2018-09-21 15:07 | NUR ---
PATIENT RETURNED TO BE. DRESSING REMOVED FROM SUBSTERNAL. SUTURE CLIPPED AND REMOVED. GABRIELLA DRAIN REMOVED WITHOUT DIFFICULTY. PATIENT TOLERATED WELL. NO BLEEDING AT SITE. DRESSING APPLIED. PACER WIRES SECURE TO SUBSTERNAL. TERADERMA APPLIED OVER 4X4.
--- NOTE | 2018-09-21 15:36 | NUR ---
AMBULATING IN RIZO WITH FAMILY. GAIT IMPROVED. ENCOURAGE TO AMBULATE SLOWLY AND STOP IF ANY SHORTNESS OF BREATH DEVELOPES AND REST. VERBALIZED UNDERSTANDING. DENIES ANY SHORTNESS OF BREATH
--- NOTE | 2018-09-21 16:45 | NUR ---
FAMILY IN ROOM, VISITING WITH PATIENT. NO DISTRESS DENIES PAIN. DRESSING DRY AND INTACT
--- NOTE | 2018-09-21 17:50 | NUR ---
ambulated to bed gait good. dressing dry and intact. voiding in bathroom. ambulating to bathroom with minimal assistances
--- NOTE | 2018-09-21 19:30 | NUR ---
REPORT RECEIVED, INITIAL SHIFT ASSESSMENT COMPLETE PER FLOW SHEET, PT AAOx4, DENIES PAIN, EQUAL HAND ELECTRON MICROPROBE OPERATOR, PPP, DRSG'S C/D/I, PACER WIRES SECURED TO CHEST, ON ICU MONITORS, SINUS TACH ON CM, OTHER VSS, INFORMED PT TO TCDB, INCENTIVE SPIROMETER AND FLUTTER DIVICE AT BEDSIDE, NO NEEDS AT THIS TIME, WILL CONTINUE TO ASSSESS
--- NOTE | 2018-09-21 20:30 | NUR ---
FAMILY AT BEDSIDE, 2 CUPS ICE CREAM REQUESTED, P DENIES OTHER NEEDS, WILL CONTINUE TO MONITOR
--- NOTE | 2018-09-21 21:00 | NUR ---
RT IN ROOM GIVING Tx, FAMILY AT BEDSIDE, MEDS GIVEN PER MAR/ORDERS, WILL CONTINUE TO ASSESS
--- NOTE | 2018-09-21 22:30 | NUR ---
PT ENCOURAGED TO TCDB AND I/S USE, PT DENIES PAIN OR NEEDS, SINUS TACH ON MONITOR @105bpm, OTHER VSS, WILL CONTINUE TO ASSESS
[2018-09-22] VITALS (15 sets, daily range): BP systolic 106–131; BP diastolic 66–91
--- NOTE | 2018-09-22 01:00 | NUR ---
PT UP TO BATHROOM WITH ASSIST, X1 VOID, PT BACK TO BED, C/O ACHING INCISIONAL PAIN, RATED 5/10 ON SCALE, MED GIVEN PER MAR, VSS, WILL CONTINUE TO ASSESS, LT FA PIV LEAKING WHEN FLUSHED FROM INCERTION SITE, REMOVED IV WITH CATH TIP INTACT, APPLIED PRESSURE TO SITE AND COVERED WITH GAUZE DRSG WITH TAPE TO SECURE, PT TOLLERATED IV REMOVAL, WILL RESTART PIV NEEDED, WILL CONTINUE TO ASSESS
--- NOTE | 2018-09-22 03:00 | NUR ---
REASSESSMENT COMPLETE PER FLOW SHEET, PT DENIES PAIN, AOx4, ABLE TO MAKE NEEDS KNOWN, SINUS RHYTHM ON CM, VSS, REPOSITIONED FOR COMFORT, TCDB AND I/S ENCOURAGED, ALL DRSG'S C/D/I, RLE INCISIONS X4 LINSEY&SITE C/D/I, PPP IN ALL EXTREMITIES, PT DENIES NEEDS AT THIS TIME, WILL CONTINUE TO MONITOR
[2018-09-22 05:47] LABS: HEMATOCRIT 35.7 % (42.0-54.0); MCHC 33.6 g/dL (31.0-37.0); MCV 95.2 fL (80.0-100.0); MEAN PLATELET VOLUME 10.2 fL (7.4-10.4); RBC 3.75 10x6/uL (4.20-6.10); RDW 15.2 % (11.5-14.5); WBC 7.2 10x3/uL (4.8-10.8)
[2018-09-22 06:03] LABS: ALBUMIN 2.5 g/dL (3.4-5.0); BILIRUBIN - TOTAL 0.55 mg/dL (0.2-1.3); CALCIUM 8.2 mg/dL (8.5-10.1); CARBON DIOXIDE 28.3 mmol/L (21.0-32.0); CREATININE - SERUM 1.3 mg/dL (0.6-1.3); POTASSIUM - SERUM 4.3 mmol/L (3.5-5.1)
--- NOTE | 2018-09-22 12:53 | NUR ---
Pt is on an AHA diet with 75% average po intake Pt reports good appetite and no nutritional requests. Offered education Pt reports he has daughters that he expects will help him with a heart healthy diet at home RD following
[2018-09-22] MEDS ORDERED: LOPRESSOR25 MG PO (14:48)
[2018-09-22] MEDS ORDERED: COLACE100 MG PO (14:50)
[2018-09-22] MEDS ORDERED: PERCOCET 5-3251 TAB PO (14:52)
--- NOTE | 2018-09-22 16:03 | MORECARE ---
CASE MANAGEMENT DISCHARGE SUMMARY PATIENT: NATASHA JACOBSON UNIT: [id number] ADM DATE: 09/17/18 AGE: 63 : 53 SEX: M [facility] AUTHOR: SAMUEL CONNER PHYSICIAN: REFERRING PHYSICIAN: SALONI CHAVEZ MD DATE OF SERVICE: 09/22/18 Discharge Plan Patient Name: NATASHA JACOBSON [facility] [facility] 1955 Planned Disposition: Home Anticipated Discharge Date: Discharge Date: Expected LOS: Initial Reviewer: [email or web address] Initial Review Date: 09/22/2018 Generated: 09/22/18 5:03 pm Patient Name: NATASHA JACOBSON Page [id number] at 1603 All edits/amendments must be made on the electronic document DICTATION DATE: 09/22/181602 EMPLOYMENT ASSISTANT: SAROJ 09/22/181602 RPT#: [id number] DC DATE: STATUS: ADM IN [facility] [address] [place] [address] END OF REPORT
--- NOTE | 2018-09-22 16:05 | NUR ---
0700 PT RECIEVED, ASSISTED UP TO CHAIR, SEE SHIFT ASSESSMENT FOR DETAILS 0900 ATE 75% BREAKFAST AND TOOK AM MEDS WITHOUT DIFFICULTYU 1100 AMBULATED WITH FAMILY 1300 AMBULATED WITH FAMILY, ATE 75% LUNCH 1500TPM WIRES REMOVED BY MARCIE DUMONT AND DC INSTRUCTIONS REVIEWED 1530 DC INSTRUCTIONS AND FOLLOW UPS REVIEWED 1600 ASSISTED TO CAR WITH KT
--- NOTE | 2018-09-22 16:19 | MORECARE ---
CASE MANAGEMENT DISCHARGE SUMMARY PATIENT: NATASHA JACOBSON UNIT: [id number] ADM DATE: 09/17/18 AGE: 63 : 53 SEX: M ROOM/BED: D[facility] AUTHOR: DALILA,DOC PHYSICIAN: REFERRING PHYSICIAN: SALONI CHAVEZ MD DATE OF SERVICE: 09/22/18 Discharge Plan Patient Name: NATASHA JACOBSON Facility: [facility]:[place] : 1955 Planned Disposition: Home Anticipated Discharge Date: Discharge Date: 09/22/2018 Expected LOS: Initial Reviewer: [email or web address] Initial Review Date: 09/22/2018 Generated: 09/22/18 5:19 pm Comments DCP- Discharge Planning Updated by [email or web address]: Kassy Diamond on 09/22/18 3:[address] LATE ENTRY 09/22/18 @ 1000 Patient Name: NATASHA JACOBSON Admission Status: Elective Accout number: [id number] Admission Date: 09-17-2018 : 1955 Admission Diagnosis:ATHSCL HEART DISEASE OF [place] ART W UNSTABLE ANG P Attending: SALONI CHAVEZ Current LOS: 5 Anticipated DC Date: Planned Disposition: Home Primary Insurance: MEDICARE A & B Discharge Planning Comments: CM met with patient and significant other at bedside. Patient states he lives at home alone. Patient states he will have family stay with him upon discharge. Patient denies any discharge needs. IMM explained and served 09/22/18 @ 1000 . CM will continue to follow and assist as needed with discharge planning / needs. Courtesy Bus Driver: Kassy Diamond DCPIA - Discharge Planning Initial Assessment Updated by [id number]: Kassy Diamond on 09/22/18 4:14 pm * Is the patient Alert and Oriented? Yes * How many steps to enter\exit or inside your home? * PCP Andrews * Pharmacy [facility] * Preadmission Environment Home Alone * ADLs Independent * Equipment None * List name and contact numbers for known caregivers / representatives who currently or will assist patient after discharge: Glenda Marie - daughter- [phone] * Verbal permission to speak to the caregivers and representatives has been obtained from the patient. Yes * Community resources currently utilized None * Additional services required to return to the preadmission environment? No * Can the patient safely return to the preadmission environment? Yes * Has this patient been hospitalized within the prior 30 days at any hospital? No Coverage Notice Reviewer: [email or web address] Robbie Diamond Notice Issued Date-Time: 09/22/2018 10:00 Notice Type: IM Discharge Notice Notice Delivered To: Patient Relationship to Patient: Self Redrawer Name: Delivery Method: HAND - Hand Delivered Josefina Days: Prior Verbal Notification: Recipient Understood Notice: Yes Recipient Signature: Yes Med Rec Note Co-signed by Attending: Coverage Notice Comment: Last DP export: 09/22/18 3:03 pm Patient Name: NATASHA JACOBSON Page [phone] at 1619 All edits/amendments must be made on the electronic document DICTATION DATE: 09/22/181618 READING ASSISTANT: SAROJ 09/22/18 1619 RPT#: [id number] DC DATE:09/22/18 STATUS: DIS IN [facility] [address] [place] [address] END OF REPORT
--- NOTE | 2018-09-22 16:30 | MORECARE ---
CASE MANAGEMENT DISCHARGE SUMMARY PATIENT: NATASHA JACOBSON UNIT: [id number] ADM DATE: 09/17/18 AGE: 63 : 53 SEX: M ROOM/BED: D.[facility] AUTHOR: DALILA,DOC PHYSICIAN: REFERRING PHYSICIAN: SALONI CHAVEZ MD DATE OF SERVICE: 09/22/18 Discharge Plan Patient Name: NATASHA JACOBSON Facility: [facility]:[place] : 1955 Planned Disposition: Home Anticipated Discharge Date: Discharge Date: 09/22/2018 Expected LOS: Initial Reviewer: [email or web address] Initial Review Date: 09/22/2018 Generated: 09/22/18 5:30 pm Comments DCP- Discharge Planning Updated by [id number]: Kasys Diamond on 09/22/18 3:[address] LATE ENTRY 09/22/18 @ 1000 Patient Name: NATASHA JACOBSON Admission Status: Elective Accout number: [id number] Admission Date: 09-17-2018 : 1955 Admission Diagnosis:ATHSCL HEART DISEASE OF [place] ART W UNSTABLE ANG P Attending: SALONI CHAVEZ Current LOS: 5 Anticipated DC Date: Planned Disposition: Home Primary Insurance: MEDICARE A & B Discharge Planning Comments: CM met with patient and significant other at bedside. Patient states he lives at home alone. Patient states he will have family stay with him upon discharge. Patient denies any discharge needs. IMM explained and served 09/22/18 @ 1000 . CM will continue to follow and assist as needed with discharge planning / needs. Technical Sourcing Recruiter: Kassy Diamond DCPIA - Discharge Planning Initial Assessment Updated by [id number]: Kassy Diamond on 09/22/18 4:14 pm * Is the patient Alert and Oriented? Yes * How many steps to enter\exit or inside your home? * PCP Andrews * Pharmacy [facility] * Preadmission Environment Home Alone * ADLs Independent * Equipment None * List name and contact numbers for known caregivers / representatives who currently or will assist patient after discharge: Glenda Marie - daughter- [phone] * Verbal permission to speak to the caregivers and representatives has been obtained from the patient. Yes * Community resources currently utilized None * Additional services required to return to the preadmission environment? No * Can the patient safely return to the preadmission environment? Yes * Has this patient been hospitalized within the prior 30 days at any hospital? No Coverage Notice Reviewer: [email or web address] Robbie Diamond Notice Issued Date-Time: 09/22/2018 10:00 Notice Type: IM Discharge Notice Notice Delivered To: Patient Relationship to Patient: Self Director Of Catering Name: Delivery Method: HAND - Hand Delivered Josefina Days: Prior Verbal Notification: Recipient Understood Notice: Yes Recipient Signature: Yes Med Rec Note Co-signed by Attending: Coverage Notice Comment: Last DP export: 09/22/18 3:19 pm Patient Name: NATASHA JACOBSON Page [phone] at 1630 All edits/amendments must be made on the electronic document DICTATION DATE: 09/22/18 1630 BPM DEVELOPER: SAROJ 09/22/18 1630 RPT#: [id number] DC DATE:09/22/18 STATUS: DIS IN [facility] [address] [place] [address] END OF REPORT
--- NOTE | 2018-09-30 13:29 | TEE ---
PATIENT:NATASHA JACOBSON MEDICAL RECORD: [id number] LOCATION:[place] [address] AGE OF PATIENT: 63 ADMISSION DATE: 09/17/18 SEX: M REFERRING PHYSICIAN: INTERPRETING PHYSICIAN: SOHAIL MISHRA MD TRANSESOPHAGEAL ECHOCARDIOGRAM Date: 09/17/18 SOMMER CHARGE Y INDICATIONS: CABG PREMEDICATIONS: PATIENT'S RESPONSE PROCEDURE DOPPLER MEASUREMENTS: LVIT LA PA RA LVOT RVOT Asc. Ao AV Gradient Peak AV Mean AV Area MV Gradient Peak MV Mean MV Area INTERPRETATION: LVd: 3.5 cm LVs: 2.6 cm Doppler: 2-D: COLOR FLOW DOPPLER NORMAL SALINE STUDY: MISCELLANOUS: DIAGNOSIS: PLAN: Line Up Machine Operator:Hamlet Mckeon Circular Knife Cutter Machine: Benjamin GUERRERO COMMENTS: DATE OF SERVICE: 09/17/2018 PROCEDURE: Transesophageal echo evaluation of valvular structures during bypass surgery. FINDINGS: 1. Left ventricular chamber size is within normal limits. Left ventricular systolic function is normal. Overall ejection fraction estimated at 50%. 2. Left atrium, right atrium, and right ventricular chamber sizes are within TRANSESOPHAGEAL ECHOCARDIOGRAM REPORT [id number] NATASHA JACOBSON normal limits. 3. Valvular structures have normal structure and motion. 4. Doppler interrogation reveals mild mitral regurgitation, no other valvular insufficiency or stenosis. 5. No evidence of pericardial effusion or left ventricular thrombus. TRANSINT:[id number] Voice Confirmation ID: [id number] DOCUMENT ID: [id number] at 1329 CC: [id number] DICTATION DATE: 09/18/18 1343 ROOM SERVICE WAITER/WAITRESS: 09/19/18 0233 DIS IN 09/22/[address] [address]
== END 2018-09-22 16:07 | disposition home or self-care (01) | DRG 236 ==
LOC: D.SDCHOLD 10:00 → D.CVICU 09-17 10:25 → D.SDCHOLD 09-17 12:45 → D.CVICU 09-17 13:43
PROVIDERS: ADMIT Thoracic Surgery (Cardiothoracic Vascular Surgery)
PROC: 021209W Bypass Coronary Artery, Three Arteries from Aorta with Autologous Venous Tissue, Open Approach (ICD-10-PCS; 2018-09-17)
PROC: 06BP0ZZ Excision of Right Saphenous Vein, Open Approach (ICD-10-PCS; 2018-09-17)
PROC: 5A1221Z Performance of Cardiac Output, Continuous (ICD-10-PCS; 2018-09-17)
PROC: B24BZZ4 Ultrasonography of Heart with Aorta, Transesophageal (ICD-10-PCS; 2018-09-17)
PROC: 02100Z9 Bypass Coronary Artery, One Artery from Left Internal Mammary, Open Approach (ICD-10-PCS; principal; 2018-09-17 12:45)
DX: I25.110 Atherosclerotic heart disease of native coronary artery with unstable angina pectoris (principal); N17.9 Acute kidney failure, unspecified; E87.1 Hypo-osmolality and hyponatremia; J98.11 Atelectasis; I10 Essential (primary) hypertension; E78.5 Hyperlipidemia, unspecified; D72.829 Elevated white blood cell count, unspecified; F41.9 Anxiety disorder, unspecified; R00.0 Tachycardia, unspecified

== ENCOUNTER → 2018-10-22 08:47 | Outpatient (CLI) | payer MEDICARE, OTHER ==
[2018-09-18 09:43] VITALS: BMI 32.6
[~2018-10-22 08:47] MED LIST changes: +COLACE100 MG PO; +LOPRESSOR25 MG PO; +NITROQUICK0.4 MG SL; +PERCOCET 5-3251 TAB PO; +XANAX XR 1 MG TA1 MG PO
[2018-10-22 09:30] LABS: HEMATOCRIT 42.7 % (42.0-54.0); HEMOGLOBIN 14.7 g/dL (13.5-17.5); MCHC 34.4 g/dL (31.0-37.0); MEAN PLATELET VOLUME 10.6 fL (7.4-10.4); RBC 4.59 10x6/uL (4.20-6.10); RDW 14.3 % (11.5-14.5); WBC 7.4 10x3/uL (4.8-10.8)
[2018-10-22 09:46] LABS: ALBUMIN 3.7 g/dL (3.4-5.0); BILIRUBIN - TOTAL 0.26 mg/dL (0.2-1.3); CALCIUM 8.4 mg/dL (8.5-10.1); CARBON DIOXIDE 25.6 mmol/L (21.0-32.0); CREATININE - SERUM 1.1 mg/dL (0.6-1.3); POTASSIUM - SERUM 4.6 mmol/L (3.5-5.1); PROTEIN - SERUM 6.7 g/dL (6.4-8.2)
== END | disposition home or self-care (01) ==
LOC: D.LAB 08:00
PROVIDERS: Thoracic Surgery (Cardiothoracic Vascular Surgery)
DX: D64.9 Anemia, unspecified (principal); R91.8 Other nonspecific abnormal finding of lung field

== ENCOUNTER → 2018-11-04 10:19 | Outpatient (CLI) | payer MEDICARE, OTHER ==
[2018-09-18 09:43] VITALS: BMI 32.6
== END | disposition home or self-care (01) ==
LOC: D.US 10-31 09:30
DX: I73.9 Peripheral vascular disease, unspecified (principal)

== ENCOUNTER 2019-01-04 14:12 | Emergency (ER) | payer MEDICARE, OTHER ==
[~2019-01-04] VITALS: Ht 180.3 cm; Wt 100.0 kg
[2019-01-04 14:35] VITALS: Ht 180.3 cm; Wt 100.0 kg
[2019-01-04 14:50] LABS: APPEARANCE CLEAR (CLEAR); COLOR YELLOW (YELLOW)
[2019-01-04 14:51] LABS: BILIRUBIN NEGATIVE (NEGATIVE); GLUCOSE NEGATIVE (NEGATIVE); KETONE NEGATIVE (NEGATIVE); NITRITE NEGATIVE (NEGATIVE); PROTEIN NEGATIVE (NEGATIVE); UROBILINOGEN NORMAL (NORMAL)
[2019-01-04 15:06] LABS: BASOPHILS 0.3 % (0-2); EOSINOPHILS 1.1 % (0-7); HEMATOCRIT 44.6 % (42.0-54.0); HEMOGLOBIN 15.4 g/dL (13.5-17.5); IMMATURE GRANULOCYTES 0.2 % (0-5); LYMPHOCYTES 15.7 % (15-50); MCH 31.8 pg (26.0-34.0); MCHC 34.5 g/dL (31.0-37.0); MCV 92.1 fL (80.0-100.0); MEAN PLATELET VOLUME 9.9 fL (7.4-10.4); MONOCYTES 15.1 % (2-11); NEUTROPHILS 67.6 % (40-80); RBC 4.84 10x6/uL (4.20-6.10); RDW 15.8 % (11.5-14.5); WBC 8.9 10x3/uL (4.8-10.8)
[2019-01-04 15:07] LABS: PLATELET COUNT 196 10x3/uL (130-400)
[2019-01-04 15:19] LABS: ALBUMIN 3.8 g/dL (3.4-5.0); ANION GAP 14.1 mmol/L (8-16); BILIRUBIN - TOTAL 0.39 mg/dL (0.2-1.3); CARBON DIOXIDE 30.9 mmol/L (21.0-32.0); CREATININE - SERUM 1.8 mg/dL (0.6-1.3); PROTEIN - SERUM 7.1 g/dL (6.4-8.2)
[2019-01-04 20:26] VITALS: BP 155/88
== END 2019-01-04 20:26 | disposition home or self-care (01) ==
LOC: D.ER 14:12
PROVIDERS: Family Medicine
DX: R10.9 Unspecified abdominal pain (principal); I10 Essential (primary) hypertension; I25.10 Atherosclerotic heart disease of native coronary artery without angina pectoris

== ENCOUNTER → 2019-01-12 12:16 | Outpatient (CLI) | payer MEDICARE, OTHER ==
[2019-01-04 14:35] VITALS: BMI 30.7
[~2019-01-12 12:16] MED LIST changes: +OMEPRAZOLE40 MG PO; +PLAVIX75 MG PO; +TORADOL10 MG PO; +TYLENOL W/CODEI1 TAB PO; +ZOFRAN ODT4 MG/UDTAB PO
== END | disposition home or self-care (01) ==
LOC: D.NM 12:16
PROVIDERS: ATTEND Internal Medicine Gastroenterology
DX: R10.9 Unspecified abdominal pain (principal)

== ENCOUNTER 2019-01-14 14:01 | Emergency (ER) | payer MEDICARE, OTHER ==
[~2019-01-14] VITALS: Ht 180.3 cm; Wt 101.4 kg
[~2019-01-14 14:01] MED LIST changes: -OMEPRAZOLE40 MG PO; -PLAVIX75 MG PO; -TORADOL10 MG PO; -TYLENOL W/CODEI1 TAB PO; -ZOFRAN ODT4 MG/UDTAB PO
[2019-01-14 14:06] VITALS: Ht 180.3 cm; Wt 101.4 kg
[2019-01-14] MEDS ORDERED: ZOFRAN ODT4 MG/UDTAB PO (18:58)
[2019-01-14] MEDS ORDERED: TORADOL10 MG PO (18:58)
[2019-01-14] MEDS ORDERED: TYLENOL W/CODEI1 TAB PO (19:00)
[2019-01-14 19:55] VITALS: BP 165/85
[2019-01-15] MEDS ORDERED: PLAVIX75 MG PO (13:54)
== END 2019-01-14 19:55 | disposition home or self-care (01) ==
LOC: D.ER 14:01
DX: M10.9 Gout, unspecified (principal); K82.8 Other specified diseases of gallbladder

== ENCOUNTER 2019-01-16 08:44 | Day surgery (SDC) | payer MEDICARE, OTHER ==
[~2019-01-16 08:44] MED LIST changes: +PLAVIX75 MG PO; +TORADOL10 MG PO; +TYLENOL W/CODEI1 TAB PO; +ZOFRAN ODT4 MG/UDTAB PO
[2019-01-16 09:13] LABS: HEMATOCRIT 42.5 % (42.0-54.0); HEMOGLOBIN 14.7 g/dL (13.5-17.5); MCH 31.7 pg (26.0-34.0); MCHC 34.6 g/dL (31.0-37.0); MCV 91.6 fL (80.0-100.0); MEAN PLATELET VOLUME 9.8 fL (7.4-10.4); RBC 4.64 10x6/uL (4.20-6.10); RDW 15.8 % (11.5-14.5); WBC 10.6 10x3/uL (4.8-10.8)
[2019-01-16 09:23] LABS: APTT 33.8 SECONDS (22.8-39.4); INR 1.03 (0.85-1.17)
[2019-01-16] MEDS ORDERED: OMEPRAZOLE40 MG PO (09:37)
[2019-01-16 09:46] VITALS: BP 152/95; BMI 31.1
--- NOTE | 2019-01-16 14:42 | NUR ---
PT REQUESTED TO SPEAK TO DR. ARIZMENDI BEFORE SIGNING CONSENT FORMS. PT WAS INFORMED OF RISK OF NEEDING BLOOD AND ALSO NEEDING ANESTHESIA. PT SIGNED CONSENT FORM FOR ACTUAL PROCEDURE. GAVE VERBAL CONSENT FOR ANESTHESIA AND BLOOD PRODUCTS IF NEEDED.
--- NOTE | 2019-01-16 15:06 | OP ---
PATIENT NAME: NATASHA JACOBSON MEDICAL RECORD: [id number] :51 LOCATION:[facility] ADMISSION DATE: SURGEON: EDIL ARIZMENDI MD DATE OF OPERATION: 01/16/2019 PREOPERATIVE DIAGNOSES: 1. Biliary dyskinesia. 2. History of fatty liver disease. POSTOPERATIVE DIAGNOSES: 1. Biliary dyskinesia. 2. History of fatty liver disease. 3. Hepatomegaly. PROCEDURES: 1. Laparoscopic cholecystectomy. 2. Intraoperative cholangiography without immediate surgeon interpretation. 3. An 18-gauge core needle liver biopsies. SURGEON: Edil Arizmendi MD STEEL PLACER: None. BLOOD LOSS: Minimal. ANESTHESIA: General. COMPLICATIONS: None. The risks, possible complications and alternatives to the procedure were explained to the patient. He elects to proceed. The discussion specifically included, but was not limited to, bleeding requiring an emergency reoperation, infection, bile duct injury. OPERATIVE COURSE: The patient was conveyed the operating room electively on 01/16/2019. General anesthesia was induced by the anesthesia staff. The abdomen was sterilely prepped and draped. A small skin azael was accomplished in the left upper quadrant. A Veress needle was inserted through the skin azael into the peritoneal cavity. CO2 insufflation was begun. Once a sufficient pneumoperitoneum had been achieved, a 5-mm trocar was inserted in the left upper quadrant, a 5-mm trocar was inserted in the right upper quadrant and another 5-mm trocar was inserted far laterally in the right upper quadrant. A 12-mm trocar was then inserted at the umbilicus. During insertion of the Veress needle and all trocars, there appeared to have been no injury to the bowels, any intraperitoneal or retroperitoneal structures. An abdominal survey was undertaken. The indication for the liver biopsy was hepatomegaly as well as history of fatty liver disease. Under laparoscopic guidance, I percutaneously accessed the right upper quadrant utilizing an 18-gauge core needle liver biopsy device. The biopsy sites were made hemostatic with electrocautery. I then advanced a cholangiogram trocar. I punctured the fundus of the gallbladder. I aspirated bile. I then injected dye. Under real time fluoroscopy, static fluoroscopic images were obtained. These were cholangiographic images, which are sent to the radiologist for interpretation. I aspirated bile and removed the cholangiogram trocar. OPERATIVE REPORT [id number] NATASHA JACOBSON The gallbladder was then grasped and retracted cephalad. The infundibulum was grasped and retracted laterally. Blunt dissection was begun in the triangle of [place]. One cystic artery and one cystic duct were identified, these were clipped multiply and divided between clips. The gallbladder was then excised from its bed in the liver, it was placed within a bag retrieval device and was withdrawn through the umbilical fascia defect. The 12-mm trocar was replaced and the abdomen reinsufflated. I irrigated and aspirated in the right upper quadrant. There was no bleeding even at low pressure of 8. All the trocars were removed and the abdomen desufflated. The fascia at the umbilicus was closed with a horizontal mattress 0 Vicryl suture. The skin at the umbilicus was closed with interrupted 4-0 Vicryl Rapide sutures. The other skin incisions were closed with interrupted intracuticular 3-0 Vicryls. Benzoin and Steri-Strips were applied. The patient was then extubated and conveyed to the post-anesthesia care unit where he was in stable condition. He will be dismissed home on [address]. I will see him in the office in 3 weeks. TRANSINT:[id number] Voice Confirmation ID: [id number] DOCUMENT ID: [id number] EDIL ARIZMENDI MD at 1506 CC: NATASHA GRIFFIN M.D., SALONI CHAVEZ MD and HEIDI DO [id number] DICTATION DATE: 01/16/19 1252 TOWER HELPER: 01/16/19 1332 [facility] 01/16/19 [facility] [address] [place] [address]
== END 2019-01-16 14:30 | disposition home or self-care (01) ==
LOC: D.OPS 08:44 → D.PAN 10:45 → D.OPS 14:30
PROVIDERS: Anesthesiology; ATTEND Surgery
DX: K81.1 Chronic cholecystitis (principal); K76.0 Fatty (change of) liver, not elsewhere classified; Z01.812 Encounter for preprocedural laboratory examination